=== PATIENT | male | born 1985 | race Caucasian/White ===

== ENCOUNTER 2018-10-15 20:46 | Emergency (ER) | payer OTHER ==
[~2018-10-15] VITALS: Ht 180.3 cm; Wt 137.9 kg
[~2018-10-15 20:46] MED LIST: LEVFLO500 PO; PANT40 PO
[2018-10-15] MEDS ORDERED: Cleocin HCl150 MG PO (21:55)
== END 2018-10-15 22:10 | disposition home or self-care (01) ==
LOC: ER 20:46
DX: K04.7 Periapical abscess without sinus (principal); R03.0 Elevated blood-pressure reading, without diagnosis of hypertension; F17.210 Nicotine dependence, cigarettes, uncomplicated
CPT/HCPCS: 99283-25